=== PATIENT | female | born 1990 | race Caucasian/White ===

== ENCOUNTER 2022-03-04 10:58 | Outpatient (CLI) | payer OTHER ==
--- NOTE | 2022-03-04 12:50 | MRI Report ---
PROCEDURE: Cervical Spine W/O INDICATIONS: CERVICALGIA TECHNIQUE: Noncontrast sagittal T1 spin echo and T2 fast spin echo, sagittal STIR, foraminal oblique sagittal T2 fast spin echo, and axial gradient echo or T2 fast spin echo through the cervical spine. COMPARISON: None. FINDINGS: Image quality: Motion artifact is noted. Alignment and Curvature: There is normal bony alignment. Bone Marrow: Marrow demonstrates normal overall signal. Spinal Cord: Visualized spinal cord has normal size and signal. No cerebellar tonsillar herniation. Paraspinous Soft Tissues: No paravertebral masses. Prevertebral soft tissues are normal in thicknes s. C2-C3: Normal in appearance. C3-C4: The disc height and disc signal are well preserved. Moderate disc osteophyte complex is seen , which is eccentric to the right side. There is mild right-sided neuroforaminal narrowing. No signif icant left-sided neuroforaminal narrowing is seen. Mild central canal narrowing is seen. C4-C5: The disc height and disc signal are relatively well-preserved. Mild disc bulge is seen, which is eccentric to the right. Mild facet hypertrophy is seen. There is moderate right-sided and no le ft-sided neuroforaminal narrowing. No significant central canal narrowing is seen. C5-C6: The disc height and disc signal are well preserved. Mild disc bulge is seen. There is mode rate right-sided and mild left-sided neuroforaminal narrowing. No significant central canal narrowing is seen. C6-C7: No significant abnormality is seen. C7-T1: Normal in appearance. IMPRESSION: Several levels of premature cervical spine degenerative change can be seen. Reviewed by: Jose Deluca MD on 03/04/2022 11:49 AM MISSY Approved by: Jose Deluca MD on 03/04/2022 11:49 AM MISSY Station ID: [id number]
== END 2022-03-04 10:59 | disposition home or self-care (01) ==
LOC: DI 10:58
PROVIDERS: ATTEND Student in an Organized Health Care Education/Training Program
DX: M47.812 Spondylosis without myelopathy or radiculopathy, cervical region (principal); M48.02 Spinal stenosis, cervical region